=== PATIENT | female | born 1955 | race Caucasian/White ===

== ENCOUNTER 2022-12-01 10:50 | Observation (INO) | payer OTHER, MEDICAID ==
[~2022-12-01] VITALS: Ht 165.1 cm; Wt 113.0 kg
[2022-12-01 12:07] LABS: Albumin 2.3 g/dL (3.4-5.0); Calcium 8.4 mg/dL (8.5-10.1); Potassium 4.6 mmol/L (3.5-5.1)
[2022-12-01 12:08] LABS: Basophils # (auto) 0.1 10 ^3/uL (0-0.2)
[2022-12-01 12:09] LABS: Basophils % (auto) 1.2 % (0.0-2.0); Eosinophils # (auto) 0.2 10 ^3/uL (0-0.8); Eosinophils % (auto) 2.5 % (0.0-7.0); Hematocrit 17.1 % (36.0-46.0); Lymphocytes # (auto) 0.9 10 ^3/uL (0.4-5.4); Lymphocytes % (auto) 10.1 % (10.0-50.0); Mean Corpuscular Hemoglobin 20.9 pg (28.0-32.0); Mean Corpuscular Hgb Conc. 28.6 g/dL (32.0-36.0); Mean Corpuscular Volume 72.9 fL (80.0-100.0); Monocytes # (auto) 0.6 10 ^3/uL (0-1.3); Monocytes % (auto) 6.6 % (0.0-12.0); Neutrophils % (auto) 79.6 % (37.0-80.0); Nucleated Red Blood Cells % 0.4 %; Red Blood Cells 2.34 10^6/uL (4.0-5.20); White Blood Cell 8.7 10^3/uL (4.4-10.8)
[2022-12-01 12:11] LABS: Red Cell Distribution Width 20.8 % (11.8-14.3)
[2022-12-01 12:12] LABS: Bilirubin, Total 0.4 mg/dL (0.2-1.0); Total Protein 5.2 g/dL (6.4-8.2)
[2022-12-01] MEDS ORDERED: ALBUTEROL SULF 2.5 MG/0.5ML(0.5%) NEB SOLN NEB ONE (12:15)
[2022-12-01] MEDS ORDERED: FUROSEMIDE 40 MG/4 ML VIAL IV ONE (12:15)
[2022-12-01] MEDS ORDERED: DexAMETHasone SOD PHOS 10MG/1ML VIAL INJ IV ONE (12:15)
[2022-12-01] MEDS ORDERED: IPRATROPIUM BROM 0.5 MG/2.5ML INH SOL NEB ONE (12:15)
[2022-12-01 12:20] LABS: INR 1.01 (0.9-1.15); Partial Thromboplastin Time 23.5 sec (24.6-33.4)
[2022-12-01 12:21] LABS: Hemoglobin 4.9 g/dL (12.2-16.2)
[2022-12-01] MEDS ORDERED: PANTOPRAZOLE 40 MG/10 ML VIAL INJ IV ONE (13:15)
[2022-12-01 13:44] LABS: Cholesterol 100 mg/dL (< 200)
[2022-12-01 13:45] LABS: HDL Cholesterol 40 mg/dL (40-59); LDL Cholesterol 57 mg/dL (< 100); Triglycerides 73 mg/dL (< 150)
[2022-12-01 13:52] LABS: % Iron Saturation 2.8 % (15-50)
[2022-12-01 14:03] LABS: Ferritin 6.2 ng/mL (10-322)
[2022-12-01 16:25] VITALS: BP 136/37
[2022-12-01 16:40] VITALS: BP 163/38
[2022-12-01] MEDS ORDERED: SOD CHL 0.45% 1,000 ML IV ONE (16:45)
[2022-12-01] MEDS ORDERED: NITROGLYCERIN 0.4 MG SL TAB SL PRN (16:45)
[2022-12-01 19:00] VITALS: BP 148/42
[2022-12-01] MEDS ORDERED: AMIODARONE HCL 150 MG in D5W 5% 100 ML IV ONE (21:45)
[2022-12-01] MEDS ORDERED: AMIODARONE HCL (50 MG/ ML) 3 ML VIAL IV ONE (21:52)
[2022-12-01 21:56] LABS: Hematocrit 21.2 % (36.0-46.0)
[2022-12-01] MEDS ORDERED: AMIODARONE 450mg/250ml AE 250 ML IV SCH (22:00)
[2022-12-01 22:27] LABS: INR 1.01 (0.9-1.15)
[2022-12-02 00:40] LABS: Hematocrit 20.4 % (36.0-46.0)
[2022-12-02 00:45] VITALS: BP 148/67
[2022-12-02 01:00] VITALS: BP 139/68
[2022-12-02 03:20] VITALS: BP 144/58
[2022-12-02 03:52] VITALS: BP 140/45
[2022-12-02] MEDS ORDERED: AMIODARONE 450mg/250ml AE 250 ML IV SCH (04:00)
[2022-12-02 04:07] VITALS: BP 134/66
[2022-12-02 04:51] LABS: Urine Bacteria NONE SEEN /hpf (None Seen); Urine Blood Negative /uL (Negative); Urine Hyaline Cast FEW /lpf (0 - 2); Urine Mucus FEW (None Seen); Urine Specific Gravity 1.016 (1.001-1.035); Urine WBC 3 /hpf (0 - 5)
[2022-12-02] MEDS: PANTOPRAZOLE 40 MG/10 ML VIAL INJ IV SCH ×2 (07:33→14:23)
[2022-12-02] MEDS: FUROSEMIDE 40 MG/4 ML VIAL IV SCH ×2 (07:34→11:20)
[2022-12-02 08:58] LABS: Basophils # (auto) 0 10 ^3/uL (0-0.2); Basophils % (auto) 0.4 % (0.0-2.0); Eosinophils # (auto) 0 10 ^3/uL (0-0.8); Eosinophils % (auto) 0.1 % (0.0-7.0); Lymphocytes # (auto) 0.5 10 ^3/uL (0.4-5.4); Monocytes # (auto) 0.4 10 ^3/uL (0-1.3); Red Blood Cells 3.17 10^6/uL (4.0-5.20)
[2022-12-02 08:59] LABS: Hematocrit 24.4 % (36.0-46.0); Hemoglobin 7.4 g/dL (12.2-16.2); Lymphocytes % (auto) 4.4 % (10.0-50.0); Mean Corpuscular Hemoglobin 23.3 pg (28.0-32.0); Mean Corpuscular Hgb Conc. 30.3 g/dL (32.0-36.0); Mean Corpuscular Volume 76.9 fL (80.0-100.0); Monocytes % (auto) 4.1 % (0.0-12.0); Neutrophils # (auto) 9.9 10 ^3/uL (1.6-8.6); Nucleated Red Blood Cells % 0.7 %; White Blood Cell 10.9 10^3/uL (4.4-10.8)
[2022-12-02 09:05] LABS: Folate (Folic Acid) > 24.00 ng/mL (5.38-24)
[2022-12-02 09:07] LABS: Red Cell Distribution Width 22.8 % (11.8-14.3)
[2022-12-02 09:17] LABS: Albumin 2.3 g/dL (3.4-5.0); Calcium 8.6 mg/dL (8.5-10.1); Potassium 4.1 mmol/L (3.5-5.1)
[2022-12-02 09:20] LABS: BUN/Creatinine Ratio 14.7 (10.0-20.0); Bilirubin, Total 0.6 mg/dL (0.2-1.0); Total Protein 5.8 g/dL (6.4-8.2)
[2022-12-02] MEDS ORDERED: LIDOCAINE VISCOUS 2% 15ML UD ONE (10:11)
[2022-12-02] MEDS: fentaNYL CITRATE 100 MCG/2 ML VL ONE ×2 (10:21→10:24)
[2022-12-02] MEDS: diphenhdrAMINE HCL 50 MG/1 ML VL ONE ×2 (10:24→10:25)
[2022-12-02] MEDS: MIDAZOLAM HCL 2MG/2ML 2ml VIAL (1mg/ml) ONE ×5 (10:24→10:32)
[2022-12-02 12:49] LABS: Hemoglobin 7.4 g/dL (12.2-16.2)
[2022-12-02 12:52] LABS: Hematocrit 25.2 % (36.0-46.0)
[2022-12-02] MEDS ORDERED: PANT40TA2 PO (15:36)
[2022-12-02] MEDS ORDERED: APIX5TAB PO (15:36)
[2022-12-02] MEDS ORDERED: FER325T PO (15:36)
[2022-12-02 16:33] VITALS: BP 156/77
== END 2022-12-02 18:52 | disposition home or self-care (01) ==
LOC: EDBD 10:50 → ER 10:50 → TELE 16:51
PROVIDERS: ADMIT Internal Medicine; ATTEND Internal Medicine
DX: D50.9 Iron deficiency anemia, unspecified (principal); I13.0 Hypertensive heart and chronic kidney disease with heart failure and stage 1 through stage 4 chronic kidney disease, or unspecified chronic kidney disease; I50.9 Heart failure, unspecified; N18.9 Chronic kidney disease, unspecified; I48.91 Unspecified atrial fibrillation; K64.8 Other hemorrhoids; E78.5 Hyperlipidemia, unspecified; J44.1 Chronic obstructive pulmonary disease with (acute) exacerbation; K29.70 Gastritis, unspecified, without bleeding; K44.9 Diaphragmatic hernia without obstruction or gangrene; K57.30 Diverticulosis of large intestine without perforation or abscess without bleeding; Z87.11 Personal history of peptic ulcer disease; Z90.13 Acquired absence of bilateral breasts and nipples; Z79.899 Other long term (current) drug therapy; Z79.01 Long term (current) use of anticoagulants; Z90.49 Acquired absence of other specified parts of digestive tract; Z98.890 Other specified postprocedural states
CPT/HCPCS: 36415; 36430; 43239; 71045; 74176; 80053; 80061; 81001; 82270; 82607; 82728; 82746; 83036; 83540; 83550; 83615; 83880; 84443; 84484; 85014; 85018; 85025; 85384; 85610; 85730; 86850; 86900; 86901; 86920; 88305; 88342; 93005; 93306; 93970; 94640; 96365; 96366; 96375; 96376; 99291; C9113; G0378; J0282; J1100; J1200; J1940; J2250; J3010; J7030; J7060; J7644; P9016

== ENCOUNTER 2022-12-18 07:21 | Emergency (ER) | payer OTHER, MEDICAID ==
[~2022-12-18] VITALS: Ht 177.8 cm; Wt 136.3 kg
[~2022-12-18 07:21] MED LIST: APIX5TAB PO; FER325T PO; PANT40TA2 PO
[2022-12-18] MEDS ORDERED: SODIUM CHLORIDE 0.9% 1,000 ML IV ONE ×2 (08:00)
[2022-12-18 08:09] LABS: Basophils # (auto) 0.1 10 ^3/uL (0-0.2); Eosinophils # (auto) 0.2 10 ^3/uL (0-0.8); Hemoglobin 8.2 g/dL (12.2-16.2); Monocytes # (auto) 0.8 10 ^3/uL (0-1.3); White Blood Cell 9.1 10^3/uL (4.4-10.8)
[2022-12-18 08:11] LABS: Basophils % (auto) 1.1 % (0.0-2.0); Eosinophils % (auto) 2.5 % (0.0-7.0); Hematocrit 27.8 % (36.0-46.0); Lymphocytes # (auto) 0.5 10 ^3/uL (0.4-5.4); Mean Corpuscular Hemoglobin 23.6 pg (28.0-32.0); Mean Corpuscular Hgb Conc. 29.6 g/dL (32.0-36.0); Mean Corpuscular Volume 79.6 fL (80.0-100.0); Monocytes % (auto) 8.3 % (0.0-12.0); Neutrophils # (auto) 7.5 10 ^3/uL (1.6-8.6); Neutrophils % (auto) 82.1 % (37.0-80.0); Nucleated Red Blood Cells % 0.1 %; Red Blood Cells 3.49 10^6/uL (4.0-5.20)
[2022-12-18 08:43] LABS: Red Cell Distribution Width 24.9 % (11.8-14.3)
[2022-12-18 08:58] LABS: Urine Bacteria FEW /hpf (None Seen); Urine Blood Negative /uL (Negative); Urine Mucus FEW (None Seen); Urine Specific Gravity 1.018 (1.001-1.035); Urine WBC 1 /hpf (0 - 5)
[2022-12-18 09:36] LABS: Potassium 4.6 mmol/L (3.5-5.1)
[2022-12-18 09:45] LABS: Albumin 2.2 g/dL (3.4-5.0); BUN/Creatinine Ratio 11.5 (10.0-20.0); Bilirubin, Total 0.7 mg/dL (0.2-1.0); Calcium 8.3 mg/dL (8.5-10.1); Magnesium 1.8 mg/dL (1.6-2.6); Total Protein 5.2 g/dL (6.4-8.2)
[2022-12-18 12:01] VITALS: BP 156/31
== END 2022-12-18 12:57 | disposition home or self-care (01) ==
LOC: EDBD 07:21 → ER 07:21
DX: M51.36 Other intervertebral disc degeneration, lumbar region (principal); J44.9 Chronic obstructive pulmonary disease, unspecified; Z90.49 Acquired absence of other specified parts of digestive tract; Z79.899 Other long term (current) drug therapy
CPT/HCPCS: 36415; 72131; 73700; 80053; 81001; 83735; 84484; 85025